=== PATIENT | male | born 1990 | race Caucasian/White ===

== ENCOUNTER 2019-06-22 00:24 | Emergency (ER) | payer MEDICAID, SELFPAY ==
[2019-06-22 00:25] VITALS: BP 183/100; PULSE 90; RESP 16; TEMP 37.1; O2SAT 100
[2019-06-22 00:28] VITALS: BP 180/106; PULSE 91; RESP 14; TEMP 37.1; O2SAT 100; BMI 40.2
--- NOTE | 2019-06-22 00:39 | EKG12_ITS ---
Test Reason : PALPS Blood Pressure : / mmHG Vent. Rate : 086 BPM Atrial Rate : 086 BPM P-R Int : 172 ms QRS Dur : 090 ms QT Int : 372 ms P-R-T Axes : 050 004 020 degrees QTc Int : 445 ms Normal sinus rhythm Normal ECG Confirmed by OSMAN NEUMANN, CORRINE ([id number]), editor index GINA COX ([id number]) on 06/24/2019 10:43:08 AM Referred By: Confirmed By:CORRINE BREWER MD
--- NOTE | 2019-06-22 00:48 | ED.VIS.GEN ---
History of Present Illness Chief Complaint: Palpitations Informant: Patient Onset: Today Context: Sudden Onset Timing: Intermittent Quality: Skipped beats distal mid left calf to toes Location: Mid chest and left lower extremity Current Severity: No longer having palpitations or numbness Maximum Severity: Mild Worsened by: Nothing Relieved by: Nothing Associated Symptoms: No associated symptoms or radiation. Narrative: Presents with palpitations that lasted seconds. He denied pain, shortness of breath, nausea, vomiting, diaphoresis or radiation of the pain. He states his left lower extremity distal mid calf with involvement of the distal leg and foot was numb for approximately 15 seconds. He presently has no symptoms. He has history of elevated blood pressure when it is checked at the doctor's office. He denies headache. He denies visual, ocular auditory symptoms. He denies trouble with speech or swallowing. He denies problems with balance. He presently denies paresthesia, anesthesia motor weakness. Prior similar symptoms: No Recent Illness/Hospitalization: No - Past Medical History (1) No significant past medical history Status: Acute Past Medical History - Allergies and Home Meds Allergies/Adverse Reactions: Allergies No Known Allergies Allergy (Verified 10/01/17 03:41) Primary Care Physician: Howard Franklin DO [Primary Care Provider] - Prior records reviewed: No Past Medical History: None Surgical History: no surgical history Lives: With Family Smoking Status: Current every day smoker Review of Systems General: Denies: Chills, Fever, Sweats Eyes: Denies: Visual changes - bilaterally, Diplopia ENT: Denies: Rhinorrhea, Sore throat Cardiovascular: Reports: Palpitations. Denies: Chest pain, Heart racing Respiratory: Denies: Dyspnea, Cough, Dyspnea on exertion Gastrointestinal: Denies: Abdominal pain, Nausea, Vomiting, Diarrhea, Melena, Hematochezia Genitourinary: Denies: Dysuria, Hematuria, Frequency Musculoskeletal: Denies: Back pain, Extremity Pain Skin: Denies: Rash, Wounds Neurological: Reports: Parasthesia. Denies: Headache, Weakness, Numbness Hematologic: Denies: Easy bruising, Easy bleeding Physical Exam Vital Signs/Narrative: Vital Signs Temp Pulse Resp BP Pulse Ox 06/22/19 00:28 98.7 F 91 14 180/106 H 100 06/22/19 00:25 98.7 F 90 16 183/100 H 100 Inital Vital Signs reviewed: Yes - Blood pressure 183/100 General: Well nourished, Well developed, No Acute Distress Head: Normocephalic, Atraumatic Eyes: Perrl, EOMI ENT: Moist mucous membranes, No rhinorrhea Neck: Supple, Nontender Cardiovascular: Regular rate, Regular rhythm, No murmurs, Normal S1, Normal S2 Respiratory: No distress, CTA bilaterally, Chest nontender Abdomen: Soft, Nontender, Nondistended, Normal bowel sounds Back: Nontender, Normal Inspection Extremities: Nontender, No edema, - - There is no asymmetry, swelling, discoloration, leg vein distention, palpable cords or tenderness along the distribution of the deep venous system. Skin: Normal color, No rash, No Trauma. Negative for: Cyanosis, Diaphoresis, Jaundice Neurological: Alert, Oriented x3, Cranial nerves II-XII grossly intact, Normal Strength, Normal Sensation Psychological: Normal affect, Normal Mood Diagnostic/Tx/Re-eval Laboratory Results 06/22/19 00:50 Sodium 139 Potassium 3.7 Chloride 105 Carbon Dioxide 26.0 Anion Gap 8 BUN 13 Creatinine 1.13 Estim Creat Clear Calc 112.15 Est GFR (MDRD) Af Amer 98 Est GFR (MDRD) Non-Af 81 BUN/Creatinine Ratio 11.5 Glucose 105 Calcium 8.9 - EKG Initial EKG Interpretation: Sinus Rhythm - Ventricular rate is 86. NV interval is 172 ms. QRS duration is 90 ms. QT duration 372 ms. [place] is normal. The EKG is normal. - Medical Decision Making She was placed on the monitor to determine if he has any ectopy during his stay. EKG was obtained to assess for evidence of preexcitation syndrome i.e. WPW, Farias longer long syndrome etc. And elect lites were obtained to assess for potassium specifically as well as renal function since his blood pressure is elevated ED Disposition - Plan for ED Patient: Disposition: Home or Assisted Living Diagnosis: Heart palpitations, Paresthesia of left leg Instructions: Palpitations, HYPERTENSION, To Be Confirmed Referrals: Howard Franklin DO [Primary Care Provider] - 3-5 Days Additional Instructions: Your blood pressure was 183 systolic. That is much higher than one would expect from white coat syndrome. Recommend having your blood pressure reassessed in 1 to 2 weeks since you have no symptoms presently and tests are negative.
[2019-06-22 01:01] VITALS: BP 164/107; PULSE 86; RESP 14; O2SAT 99
[2019-06-22 01:13] LABS: Anion Gap 8 (5-15); BUN 13 mg/dL (7-18); BUN/Creat Ratio 11.5 RATIO (10-20); Calcium,Total 8.9 mg/dL (8.5-10.1); Chloride 105 mmol/L (98-107); Creatinine, Serum 1.13 mg/dL (0.70-1.30); EST Glomerular Filtration Rate 81 mL/min (>60); Est Glom Filt Rate - Afr Amer 98 mL/min (>60); Estimated Creatinine Clearance 112.15 ml/min; Glucose 105 mg/dL (74-106); Potassium 3.7 mmol/L (3.5-5.1); Sodium Level 139 mmol/L (136-145)
[2019-06-22 01:26] VITALS: BP 158/102; PULSE 90; RESP 15; O2SAT 96
== END 2019-06-22 01:29 | disposition home or self-care (01) ==
LOC: ED 01:25
PROVIDERS: Emergency Provider Emergency Medicine
DX: R00.2 Palpitations (principal); R20.2 Paresthesia of skin; F17.200 Nicotine dependence, unspecified, uncomplicated
CPT/HCPCS: 80048; 93005; 99284

== ENCOUNTER 2020-02-20 12:13 | Emergency (ER) | payer MEDICAID, SELFPAY ==
[2020-02-20 12:15] VITALS: BP 198/108; PULSE 96; RESP 20; TEMP 36.4; O2SAT 100; BMI 39.5
--- NOTE | 2020-02-20 12:23 | EKG12_ITS ---
Test Reason : Blood Pressure : / mmHG Vent. Rate : 083 BPM Atrial Rate : 083 BPM P-R Int : 164 ms QRS Dur : 094 ms QT Int : 370 ms P-R-T Axes : 035 -13 035 degrees QTc Int : 434 ms Normal sinus rhythm Normal ECG Confirmed by CHAVA CADENA MD ([id number]), industrial editor JOZEF HADLEY ([id number]) on 02/23/2020 10:22:05 AM Referred By: FLAQUITO Confirmed By:CHAVA CADENA MD
[2020-02-20] MEDS: 0.9% Normal Saline 1,000 ML 1000 ML IV (12:45)
[2020-02-20 12:51] LABS: Absolute Lymphocyte Count 2.95 X10^3/uL (0.83-4.51); Absolute Neutrophil Count 6.4 X10^3/uL (2.0-7.7); Basophil# 0.07 X10^3/uL; Basophil% 0.7 % (0-1); Eosinophil# 0.13 X10^3/uL; Eosinophils% 1.2 % (0-5); Hematocrit 45.1 % (40-54); Hemoglobin 15.4 g/dL (13.0-16.5); Lymphocyte # 2.95 X10^3/ul (4.0); Lymphocyte % 27.8 % (19-41); Mean Corp Hgb Conc 34.1 g/dL (32-36); Mean Corpuscular Hgb 28.9 pg (27.0-32.0); Mean Corpuscular Volume 84.8 fL (80-94); Mean Platelet Vol. 9.3 fl (6.2-12.0); Monocyte# 0.98 X10^3/uL; Monocyte% 9.2 % (0-10); NRBC Flagged by Analyzer 0 % (0-5); Neutrophil # 6.41 X10^3/uL (2.7-7.7); Neutrophil % 60.5 % (47-70); Platelet Count 269 K/mm3 (150-450); RBC Distribution Width CV 12.7 % (11.6-14.6); Red Blood Count 5.32 M/mm3 (4.6-6.2); White Blood Count 10.6 K/mm3 (4.4-11.0)
[2020-02-20 13:06] LABS: ALB/GLOB Ratio 1.1 RATIO (0.9-2.4); AST(SGOT) 25 U/L (15-37); Alanine Aminotransfer ALT/SGPT 52 U/L (16-61); Albumin, Serum 3.8 g/dL (3.2-5.0); Alkaline Phosphatase 90 U/L (45-117); Anion Gap 7 (5-15); BUN 12 mg/dL (7-18); BUN/Creat Ratio 12.5 RATIO (10-20); Calcium,Total 8.9 mg/dL (8.5-10.1); Chloride 106 mmol/L (98-107); Creatinine, Serum 0.96 mg/dL (0.70-1.30); EST Glomerular Filtration Rate 98 mL/min (>60); Est Glom Filt Rate - Afr Amer 118 mL/min (>60); Estimated Creatinine Clearance 127.16 ml/min; Globulin 3.6 g/dL (2.2-4.2); Glucose 105 mg/dL (74-106); Potassium 4.1 mmol/L (3.5-5.1); Protein, Total 7.4 g/dL (6.4-8.2); Sodium Level 140 mmol/L (136-145)
--- NOTE | 2020-02-20 13:11 | ED.DCSUM_ITS ---
- ER Visit Summary Date of Service: 02/20/20 Chief Complaint: Palpitations History of Present Illness: The patient is a 29 M who presents with palpitations that began today approximately 1 hour prior to arrival. Patient states he was sitting in his car when he felt like his heart was racing. Patient admits to some shortness of breath and lightheadedness with this. Patient states he felt like he was going to pass out but denies any syncopal episodes. Patient states he feels tightness in his chest. Patient states his heart feels like it was racing. Patient states that improved when he was sitting up. Patient denies any nausea or vomiting. Patient denies any diaphoresis. Patient denies any rec ent fevers or chills. Physical Examination: Vital signs are stable. Patient is afebrile. Patient is in no acute distress. Oral mucosa is pink and moist. Neck is supple. Trachea is midline. There is no JVD noted. Heart was regular rate and rhythm. Lungs are clear and equal bilaterally. Abdomen is soft. Bowel sounds are normal. There is no tenderness. There is no rebound or guarding noted. Skin is warm dry. Cranial nerves II through XII are intact. There are no focal motor or sensory deficits noted. Extremities are intact. There is no calf tenderness or edema. Test Results: EKG showed normal sinus rhythm with a rate of 83. There are no acute ST or T wave changes. CBC, comprehensive metabolic profile, and troponin were obtained and were all within normal limits. Emergency Department Course and Treatment: Patient was given IV fluids. Patient was feeling better on reevaluation. Patient was texting on his phone throughout his emergency department stay. Patient had no cardiac dysrhythmias on the monitor. Patient was advised of his findings. Patient was instructed to follow-up with his [facility] physician in 3 to 5 days. Patient was instructed return if worse in any way. Patient understood and was agreeable with the plan. All questions were answered. Disposition: Discharge home Impression: Palpitations This note was generated with [employer] dictation software. It may contain incorrect words, spelling, and punctuation that were not noted in review of the chart prior to signing ED Disposition - Plan for ED Patient: Disposition: Home or Assisted Living Diagnosis: Palpitations Instructions: ED Palpitations Referrals: STEPHANY ANDRES [Other] - 5-7 Days
[2020-02-20 13:48] VITALS: BP 177/105; PULSE 79; RESP 16; O2SAT 97
--- NOTE | 2020-02-20 13:49 | ED.RN ---
IV DC'ED, CATHETER INTACT, SMALL GAUZE DRESSING PLACED. DISCHARGE INSTRUCTIONS GIVEN TO AND REVIEWED WITH PATIENT DENIES QUESTIONS OR CONCERNS AND VOICES UNDERSTANDING OF DISCHARGE INSTRUCTIONS. PT AMBULATES OUT OF ROOM WITHOUT DIFFICULTY.
== END 2020-02-20 13:50 | disposition home or self-care (01) ==
PROVIDERS: Emergency Provider Emergency Medicine
DX: R00.2 Palpitations (principal); E66.9 Obesity, unspecified; Z72.0 Tobacco use
CPT/HCPCS: 80053; 84484; 85025; 93005; 96360; 99284; J7030; A4216

== ENCOUNTER → 2025-02-03 | Outpatient (CLI) | payer BC, SELFPAY ==
[2025-02-03 12:39] LABS: Absolute Lymphocyte Count 2.56 X10^3/uL (0.83-4.51); Absolute Neutrophil Count 5.9 X10^3/uL (2.0-7.7); Basophil# 0.09 X10^3/uL; Eosinophil# 0.13 X10^3/uL; Eosinophils% 1.4 % (0-5); Hematocrit 47.5 % (40-54); Hemoglobin 16.2 g/dL (13.0-16.5); Lymphocyte # 2.56 X10^3/ul (0.83-4.51); Lymphocyte % 27.1 % (19-41); Mean Corp Hgb Conc 34.1 g/dL (32-36); Mean Corpuscular Hgb 28.1 pg (27.0-32.0); Mean Corpuscular Volume 82.5 fL (80-94); Mean Platelet Vol. 9.6 fl (6.2-12.0); Monocyte% 8.5 % (0-10); NRBC Flagged by Analyzer 0 % (0-5); Neutrophil # 5.85 X10^3/uL (2.7-7.7); Neutrophil % 61.7 % (47-70); Platelet Count 344 K/mm3 (150-450); RBC Distribution Width CV 12.9 % (11.6-14.6); RBC Distribution Width SD 38.5 fl (35.1-43.9); Red Blood Count 5.76 M/mm3 (4.6-6.2); White Blood Count 9.5 K/mm3 (4.4-11.0)
[2025-02-03 12:59] LABS: Hemoglobin A1c 5.6 % (<=5.6)
[2025-02-03 13:05] LABS: ALB/GLOB Ratio 1.3 RATIO (0.9-2.4); AST(SGOT) 33 U/L (<=37); Alanine Aminotransfer ALT/SGPT 43 U/L (<=46); Albumin, Serum 4.5 g/dL (3.5-5.0); Alkaline Phosphatase 96 U/L (40-129); Anion Gap 12 (5-15); BUN 8 mg/dL (4-19); BUN/Creat Ratio 9.1 RATIO (10-20); Calcium,Total 9.7 mg/dL (7.6-11.0); Chloride 100 mmol/L (98-108); Cholesterol 158 mg/dL (<=200); Creatinine, Serum 0.93 mg/dL (0.70-1.20); EST Glomerular Filtration Rate 110 (>60); Globulin 3.4 g/dL (2.2-4.2); Glucose 96 mg/dL (70-99); High Density Lipoprotein 46 mg/dL; Low Density Lipoprotein Calc. 93 mg/dL; Potassium 3.7 mmol/L (3.3-5.1); Protein, Total 7.9 g/dL (5.9-8.4); Sodium Level 138 mmol/L (133-145); Total Bilirubin 0.46 mg/dL (0.00-1.30); Triglycerides 94 mg/dL; Very Low Density Lipoprotein 19 mg/dL (5-40); cholesterol:hdl ratio screen 3.43
== END | disposition home or self-care (01) ==
DX: I10 Essential (primary) hypertension (principal); Z13.1 Encounter for screening for diabetes mellitus
CPT/HCPCS: 36415; 80053; 80061; 83036; 84443; 85025

== ENCOUNTER 2025-08-03 04:35 | Emergency (ER) | payer BC, SELFPAY ==
[2025-08-03 04:37] VITALS: BP 151/96; PULSE 105; RESP 18; TEMP 36.5; O2SAT 95; BMI 44.9
--- NOTE | 2025-08-03 04:47 | EDS_ITS ---
HPI HPI - GI History of Present Illness Chief Complaint: Abd Pain Informant: patient Narrative Narrative: Patient presents 4:30 AM for diffuse periumbilical abdominal cramping that started 2 days ago, followed by nonbilious nonbloody nausea/vomiting that started around 12 hours ago, he feels like he is to the point where even taking a sip of water causes vomiting and he cannot keep anything down. He has been having normal bowel movements the last 1 was yesterday. No blood or diarrhea. No fevers or chills. No known sick contacts no travel out of the area or suspicious food intake. He has had prior appendectomy no other abdominal surgeries in the past. No recent alcohol intake. No chest symptoms or cough or dyspnea. He states his abdomen is much more painful if he tries to lie down supine. [facility] Medical History Hypertension Home Medications ?Medication ?Instructions ?Recorded ?Last Taken ?Type hydrochlorothiazide 25 mg tablet 25 mg PO DAILY Unknown History hyoscyamine sulfate 0.125 mg 0.25 mg (2 x 0.125 mg) ro blingual 08/03/25 Unknown Rx sublingual tablet Q6H PRN abominal discomfort #20 tabs losartan 50 mg tablet 50 mg PO DAILY 08/03/25 Unkn own History naproxen 500 mg tablet 500 mg PO BID PRN pain #14 t abs 08/03/25 Unknown Rx ondansetron 8 mg disintegrating 8 mg PO Q8H PRN nausea and 08/03/25 Unknown Rx tablet vomiting #20 tabs Allergy/AdvReac Type Severity Reaction Status Date / Time No Known Allergies Allergy Verified 08/03/25 04:36 Surgical History Hx of appendectomy Social History Smoking Status: Current some day smoker tobacco type: cigars ROS ROS ED Constitutional Constitutional ED: Denies chills or fever(s) Eyes Eyes: Denies change in vision or diplopia ENT ENT ED: Denies rhinorrhea or sore throat Cardiovascular Cardiovascular: Denies chest pain or palpitations Respiratory/Chest Respiratory/Chest: Denies cough or dyspnea Gastrointestinal Gastrointestinal: Reports abdominal pain, nausea and vomiting; Denies diarrhea, hematemesis, hematochezia or melena Genitourinary Genitourinary ED: Denies dysuria or hematuria Musculoskeletal Musculoskeletal: Denies back pain or neck pain Integumentary Denies abscess or rash Neurologic Neurologic: Denies headache(s), paresthesias or weakness Psychiatric Psychiatric: Denies anxiety or suicidal thoughts EXAM Physical Exam Const Vital Signs: 08/03/25 04:37 Temperature 97.7 F L Temperature Source Oral Pulse Rate 105 H Respiratory Rate 18 Blood Pressure 151/96 H Blood Pressure Mean 114 Pulse Ox 95 Oxygen Delivery Method Room Air Positive well nourished, well developed and obese General Appearance ED: well developed and NAD Nutritional Appearance: obese HEENT Reports moist mucous membranes normocephalic and atraumatic Eyes PERRL and EOMs intact bilaterally Neck full ROM and supple Resp normal respiratory effort and clear to auscultation bilaterally Cardio regular rate, regular rhythm and no murmurs GI non-tender and non-distended Auscultation: normoactive bowel sounds Palpation: soft Back/Spine no CVA tenderness General Back: other FROM Extremity normal to inspection Extremity Narrative: Small subcutaneous chronic nontender lump beneath skin of extensor surfaces of forearms, and there is also 1 to the right of the umbilicus and the abdominal wall. Patient states these are chronic and run in the family. General Extremety ED: Negative for edema, pulses abnormal or tenderness General Extremity: Negative for edema or pulses abnormal Neuro oriented x3, CN's II-XII intact bilaterally and no sensory deficits noted Sensorium / Orientation: awake and alert Motor Exam: strength 5/5 throughout Psych mental status grossly normal and thought process normal Skin no rashes or lesions noted and no wounds MDM MDM MDM Narrative Medical decision making narrative: Based on my history and examination, the patient has a very benign abdomen, discomfort that is consistent with intestinal pain, and he does not have significant tenderness here to suggest an acute bowel obstruction or other acute inflammatory abdominal process. He asked me about the small nodules that are on his forearms and 1 on his abdomen, that is not new but he wonders if it could be related to the symptoms and I do not think that they could be they feel all subcutaneous/abdominal wall related. For these reasons I did not think while treating his symptoms and giving him IV fluids that he necessarily needed an emergency CT, however when his white blood count returned significantly elevated at 17.7, I think obtaining advanced imaging of the abdomen/pelvis is reasonable to rule out acute intra-abdominal disease/inflammatory etiologies. Given that he is having trouble lying supine due to severe pain, he was given morphine prior to the CT so he could lie down flat for the study. This helped. I reviewed the CT images and the report which I agree with; it is showing a long segment of small bowel that shows inflammation, favoring some type of inflammatory bowel disease. This will need to be worked up further if symptoms persist, but can be done as an outpatient, there is no indication for admission with any of these findings. Also he is not specifically tender in the area of this segment of bowel which appears to be in the right mid abdomen. He was given Toradol because he was still having discomfort given this inflammation, and offered a p.o. challenge, which he is tolerating well. I also discussed ventral hernia with him, as this is to the right of his umbilicus where he thought he had a subcutaneous nodule. It contains omentum/fat at this time and nothing intestinal. Radiology discussed congestion at the small neck, however the patient does not have any tenderness here so I do not think he needs urgent surgical consultation for this. At this time I recommend outpatient follow-up. It certainly is possible that he has a viral etiology of this that is causing a segment of small bowel enteritis and this could self-resolved with time. At this time supportive care advised, he will be given prescriptions and advised to follow-up with his doctor. I do not think any antibiotics are indicated at this time for this as there is no suggestion based on his symptoms that this is caused by a bacterial infection. Lab Data Attestation: I reviewed the patient's lab results. Labs: Laboratory Results - last 24 hr 08/03/25 04:43 WBC 17.7 H RBC 5.82 Hgb 16.7 H Hct 47.9 MCV 82.3 MCH 28.7 MCHC 34.9 RDW Std Deviation 37.9 RDW Coeff of [place] 12.8 Plt Count 365 MPV 9.5 Immature Gran % (Auto) 0.700 Neut % (Auto) 79.4 H Lymph % (Auto) 13.0 L [place] % (Auto) 6.4 Eos % (Auto) 0.2 Baso % (Auto) 0.3 Absolute Neuts (auto) 14.1 H Absolute Lymphs (auto) 2.31 Nucleated RBC % 0 Sodium 136 Potassium 3.5 Chloride 98 Carbon Dioxide 22.7 Anion Gap 15 BUN 6 Creatinine 1.02 Estim Creat Clear Calc 161.27 Est GFR (MDRD) Non-Af 98 BUN/Creatinine Ratio 6.2 L Glucose 145 H Calcium 9.2 Total Bilirubin 0.62 AST 18 ALT 24 Alkaline Phosphatase 92 Total Protein 7.3 Albumin 4.2 Globulin 3.1 Albumin/Globulin Ratio 1.3 Lipase 14 Radiography Diagnostic Testing: Clinical Impression(s) from Imaging Studies Abdomen/Pelvis CT 08/03/25 05:25 IMPRESSION: 1. Long segment of small bowel showing evidence of enteritis. Favor this is related to inflammatory bowel disease. Other causes favored less. 2. No obstruction. Appendectomy. 3. Ventral abdominal wall hernia adjacent to the umbilicus with the fairly small neck and a moderately large amount of omentum in the hernia sac. Very mild congestion of the omentum near the neck. Mild degree of incarceration not excluded. Correlate with point tenderness. Consider general surgical consultation. 4. Simple cyst left kidney. Bosniak 1. No follow-up required. 5. Hysterectomy. Scant free fluid. Reading Location: [id number] Agree with scant free fluid in pelvis. Radiology notes hysterectomy; this patient is a male and never had a uterus. Agree with the rest. Discharge Plan Triage Chief Complaint: Abd Pain ED Provider: Yaya Granados Dx/Rx/DC Orders Clinical Impression: Enteritis of small bowel, Ventral hernia without obstruction or gangrene, Vomiting, Abdominal cramping, generalized Instructions: Abdominal Pain, ED Hernia (Adult) Prescriptions: New ondansetron 8 mg tablet,disintegrating 8 mg PO Q8H PRN (Reason: nausea and vomiting) Qty: 20 0RF hyoscyamine sulfate 0.125 mg tablet, sublingual 0.25 mg sublingual Q6H PRN (Reason: abominal discomfort) Qty: 20 0RF naproxen 500 mg tablet 500 mg PO BID PRN (Reason: pain) Qty: 14 0RF No Action losartan 50 mg tablet 50 mg PO DAILY Patient Comments: take 1 tablet by mouth once daily hydrochlorothiazide 25 mg tablet 25 mg PO DAILY Patient Comments: take 1 tablet by mouth once daily Primary Care Provider: Ishmael Costa Referrals: Kelsey Coburn MD [Med Staff - Active Staff] - (consider outpatient surgical consultation regarding hernia repair) Ishmael Costa, MECHANICAL TECHNICAL SERVICE SPECIALIST-C [Primary Care Provider] - 3-5 Days Print Language: Bots[place] Disposition Disposition: Home, Self Care
[2025-08-03] MEDS: 0.9% Normal Saline (1000mL) 1,000 ML 999 ML IV (04:53)
[2025-08-03 04:55] LABS: Hematocrit 47.9 % (40-54); Hemoglobin 16.7 g/dL (13.0-16.5); Immature Granulocytes Count 0.120 X10^3/uL (0.0-0.0); Mean Corp Hgb Conc 34.9 g/dL (32-36); Mean Corpuscular Volume 82.3 fL (80-94); Mean Platelet Vol. 9.5 fl (6.2-12.0); NRBC Flagged by Analyzer 0 % (0-5); Platelet Count 365 K/mm3 (150-450); RBC Distribution Width CV 12.8 % (11.6-14.6); RBC Distribution Width SD 37.9 fl (35.1-43.9); Red Blood Count 5.82 M/mm3 (4.6-6.2); White Blood Count 17.7 K/mm3 (4.4-11.0)
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
[2025-08-03 05:15] LABS: AST(SGOT) 18 U/L (<=37); Alanine Aminotransfer ALT/SGPT 24 U/L (<=46); Albumin, Serum 4.2 g/dL (3.5-5.0); Alkaline Phosphatase 92 U/L (40-129); Anion Gap 15 (5-15); BUN 6 mg/dL (4-19); BUN/Creat Ratio 6.2 RATIO (10-20); Calcium,Total 9.2 mg/dL (7.6-11.0); Carbon Dioxide 22.7 mmol/L (21.0-32.0); Chloride 98 mmol/L (98-108); Estimated Creatinine Clearance 161.27 ml/min (50-250); Globulin 3.1 g/dL (2.2-4.2); Glucose 145 mg/dL (70-99); Lipase 14 U/L (13-75); Potassium 3.5 mmol/L (3.3-5.1)
--- NOTE | 2025-08-03 05:25 | CT_ITS ---
PROCEDURE: ABDOMEN/PELVIS W IV CONT ONLY 08/03/2025 REASON FOR EXAM: DIFFUSE ABD PAIN, N/V TECHNIQUE: Procedure Code: [id number] Modality: CT Procedure: ABDOMEN/PELVIS W IV CONT ONLY Coronal and Sagittal reconstruction series were provided. CONTRAST: Isovue 370 VOLUME: 99 mL One or more dose reduction techniques were used (e.g., Automated exposure control, adjustment of the mA and/or kV according to patient size, use of iterative reconstruction technique. RADIATION DOSE SUMMARY: CTDlvol: 34 mGy DLP: 1539 mGycm COMPARISON: None FINDINGS: Lung bases: Linear scarring or atelectasis inferior lingula. Liver: Mild, diffuse fatty liver. Gallbladder: Normal Spleen: Normal Pancreas: Normal Adrenals: Normal Kidneys: Subcentimeter cyst posterior left midpole is statistically benign. Otherwise, the kidneys are normal. No collecting system dilation. Bladder: Nearly empty but otherwise normal. Reproductive Organs: Hysterectomy Bowel: Stomach appears normal. Proximal small bowel appears normal. The distal small bowel shows some mild circumferential wall thickening, submucosal fatty infiltration, mild hyperenhancement and comb sign. Mild angulation of some of the bowel loops is shown. No bowel obstruction is present. Appendix: Appendectomy Lymph nodes: None appear enlarged. Vasculature: The abdominal aorta and IVC are normal. Peritoneum / Retroperitoneum: No free air or mass. Small volume free fluid in the mesentery and dependently in the cul-de-sac. Abdominal wall: Immediately inferior and lateral to the umbilicus is a ventral abdominal wall hernia with a neck measuring 2.0 x 1.6 cm. This transmits properitoneal fat and a moderately large focus of omentum measuring 7.8 x 5.6 x 11.0 cm. There is some mild congestion in the affected portion of omentum at the neck. Bones: Mild degenerative change lumbosacral junction. CT/Abdomen/Pelvis W IV Cont ONLY IMPRESSION: 1. Long segment of small bowel showing evidence of enteritis. Favor this is r elated to inflammatory bowel disease. Other causes favored less. 2. No obstruction. Appendectomy. 3. Ventral abdominal wall hernia adjacent to the umbilicus with the fairly sma ll neck and a moderately large amount of omentum in the hernia sac. Very mild congestion of the omentum near the neck. Mild de gree of incarceration not excluded. Correlate with point tenderness. Consider general surgical consultation. 4. Simple cyst left kidney. Bosniak 1. No follow-up required. 5. Hysterectomy. Scant free fluid. Reading Location: [id number]
[2025-08-03] MEDS: Ketorolac 30 MG/ML Syringe IV (06:34)
[2025-08-03 06:36] VITALS: BP 139/96; PULSE 74; RESP 18; TEMP 36.6; O2SAT 95
== END 2025-08-03 07:01 | disposition home or self-care (01) ==
PROVIDERS: Emergency Provider Emergency Medicine; Visit Provider Emergency Medicine
DX: K52.9 Noninfective gastroenteritis and colitis, unspecified (principal); R10.84 Generalized abdominal pain; K43.9 Ventral hernia without obstruction or gangrene; E66.9 Obesity, unspecified; F17.290 Nicotine dependence, other tobacco product, uncomplicated; I10 Essential (primary) hypertension; R11.2 Nausea with vomiting, unspecified
CPT/HCPCS: 74177; 80053; 83690; 85025; 99283; Q9967; A4216; J2405